=== PATIENT | male | born 1930 | race Two or more races ===

== ENCOUNTER 2018-03-04 10:44 | Outpatient (CLI) | payer OTHER ==
[~2018-03-04 10:44] MED LIST: PROTONIX40 MG PO
== END 2018-03-04 10:49 | disposition home or self-care (01) ==
LOC: RAD 501 10:44
DX: M25.571 Pain in right ankle and joints of right foot (principal); M25.572 Pain in left ankle and joints of left foot

== ENCOUNTER 2018-03-24 08:34 | Outpatient (CLI) | payer OTHER | END 2018-03-24 08:50 | disposition home or self-care (01) | LOC: RAD 501 08:34 | DX: M54.5 Low back pain (principal); M24.551 Contracture, right hip; M24.552 Contracture, left hip ==

== ENCOUNTER 2018-12-31 09:31 | Outpatient (CLI) | payer OTHER ==
[~2018-12-31 09:31] MED LIST changes: +FLECTOR1 EACH TOP
== END 2018-12-31 09:47 | disposition home or self-care (01) ==
LOC: NUCLEAR 09:31
DX: I70.213 Atherosclerosis of native arteries of extremities with intermittent claudication, bilateral legs (principal); I87.2 Venous insufficiency (chronic) (peripheral)

== ENCOUNTER 2019-01-04 09:36 | Outpatient (CLI) | payer OTHER | END 2019-01-04 10:26 | disposition home or self-care (01) | LOC: NUCLEAR 09:36 | DX: I70.213 Atherosclerosis of native arteries of extremities with intermittent claudication, bilateral legs (principal) ==